=== PATIENT | male | born 1975 | race Hispanic/Latino ===

== ENCOUNTER 2018-02-09 06:32 | Inpatient (IN) | payer OTHER ==
[2018-02-09] MEDS ORDERED: ASPIRIN 81 MG CHEWABLE TABLET ONE (06:56)
[2018-02-09 07:05] LABS: Absolute Lymphocytes (CBC) 2.3 K/uL (0.7-4.9); Absolute Monocytes 0.5 K/uL (0.1-1.3); Absolute Neutrophil 5.2 K/uL (1.8-8.0); Basophils % 0.9 % (0-1.3); Eosinophils % 1.7 % (0-4.4); Hematocrit 44.7 % (39.6-49.0); Lymphocytes % 27.7 % (15.3-44.8); MCH 31.4 pg (27.0-35.0); MCV 92.2 fL (80-100); MPV 8.5 fL (7.6-11.3); Monocytes % 5.9 % (3.3-12.3); RBC Red Blood Cell Count 4.85 M/uL (4.33-5.43)
[2018-02-09 07:14] LABS: Protime INR 0.97
[2018-02-09 07:25] LABS: ALT/SGPT 40 U/L (12-78); AST/SGOT 28 U/L (15-37); Albumin 3.7 g/dL (3.4-5.0); Alkaline Phosphatase 69 U/L (45-117); BUN Blood Urea Nitrogen 17 mg/dL (7-18); Bicarbonate 23 mmol/L (21-32); Bilirubin Direct < 0.1 mg/dL (0-0.2); Bilirubin Total 0.3 mg/dL (0.2-1.0); CKMB Creatine Kinase MB < 1.0 ng/mL (0.3-3.6); Creatine Phosphokinase 78 U/L (39-308); Glucose Level 242 mg/dL (74-106); NT PRO-BNP 8 pg/mL (<125); Potassium 3.8 mmol/L (3.5-5.1); Protein, Total 7.8 g/dL (6.4-8.2); Sodium Level 138 mmol/L (136-145)
[2018-02-09] MEDS ORDERED: ACETAMINOPHEN 500 MG TAB ONE (07:47)
--- NOTE | 2018-02-09 07:51 | RAD REPORT ---
EXAM DESCRIPTION: RAD - Chest Single View - 02/09/2018 7:26 am CLINICAL HISTORY: Chest pain radiating to the left jaw and left shoulder COMPARISON: None. TECHNIQUE: AP portable chest image was obtained 0700 hours . FINDINGS: Lungs are clear. Heart and vasculature are normal. No measurable pleural effusion and no p neumothorax. No gross bony abnormality seen. No acute aortic findings suspected. IMPRESSION: No acute cardiopulmonary process.
--- NOTE | 2018-02-09 09:37 | EKG ---
Test Date: 2018-02-09 Test Time: 09:18:14 Sewing Machine Maintenance Mechanic: FRANCIS MEASUREMENT RESULTS: Intervals: Rate: 67 TX: 150 QRSD: 82 QT: 396 QTc: 418 [place]: P: -3 TX: 150 QRS: 102 T: 11 INTERPRETIVE STATEMENTS: Normal sinus rhythm Rightward axis Borderline ECG Compared to ECG 02/09/2018 06:35:49 Right-axis deviation now present Electronically Signed On 02-09-18 09:36:56 CDT by Shabbir Magdaleno
--- NOTE | 2018-02-09 09:38 | EKG ---
Test Date: 2018-02-09 Test Time: 06:35:49 Wedding Cake Designer: SIERRA MEASUREMENT RESULTS: Intervals: Rate: 62 OK: 144 QRSD: 76 QT: 390 QTc: 395 [place]: P: -1 OK: 144 QRS: 66 T: 21 INTERPRETIVE STATEMENTS: Normal sinus rhythm Normal ECG No previous ECG available for comparison Electronically Signed On 02-09-18 09:37:09 CDT by Shabbir Magdaleno
[2018-02-09 10:05] LABS: CKMB Creatine Kinase MB 7.4 ng/mL (0.3-3.6)
--- NOTE | 2018-02-09 10:26 | EDPHYS ---
Physician Documentation [facility] Name: Edwin Dalal Age: 42 yrs Sex: Male : 1975 Arrival Date: 02/09/2018 Time: 06:43 Bed 19 Private MD: ED Physician Jesus Day HPI: 02/09 07:23 This 42 yrs old Male presents to ER via Wheelchair with complaints of Chest snw Pain. 07:23 The patient or guardian reports chest pain that is located primarily in the anterior snw chest wall, left. Onset: suddenly, awoke pt from sleep. The pain radiates to the left arm, jaw. Associated signs and symptoms: The patient has no apparent associated signs or symptoms. The chest pain is described as aching, a pressure. Duration: The patient or guardian reports a single episode, that is still ongoing. Severity of pain: At its worst the pain was mild moderate. The patient has not experienced similar symptoms in the past. The patient has not recently seen a physician, [facility]. Historical: - Allergies: 06:47 No Known Allergies; lp1 - Home Meds: 06:47 None [Active]; lp1 - PMHx: 06:47 Hypertension; lp1 - PSHx: 06:47 None; lp1 - Immunization history:: Adult Immunizations up to date. - Social history:: Smoking status: Patient uses tobacco products, denies chronic smoking, but will smoke occasionally. - Ebola Screening: : No symptoms or risks identified at this time. ROS: 07:21 Constitutional: Negative for fever, chills, and weight loss, Eyes: Negative for injury, snw pain, redness, and discharge, ENT: Negative for injury, pain, and discharge, Neck: Negative for injury, pain, and swelling, Respiratory: Negative for shortness of breath, cough, wheezing, and pleuritic chest pain, Abdomen/GI: Negative for abdominal pain, nausea, vomiting, diarrhea, and constipation, Back: Negative for injury and pain, : Negative for injury, bleeding, discharge, and swelling, MS/Extremity: Negative for injury and deformity, Skin: Negative for injury, rash, and discoloration, Neuro: Negative for headache, weakness, numbness, tingling, and seizure. 07:21 Cardiovascular: Positive for chest pain. Exam: 07:21 Constitutional: This is a well developed, well nourished patient who is awake, alert, snw and in no acute distress. Head/Face: Normocephalic, atraumatic. Eyes: Pupils equal round and reactive to light, extra-ocular motions intact. Lids and lashes normal. Conjunctiva and sclera are non-icteric and not injected. Cornea within normal limits. Periorbital areas with no swelling, redness, or edema. ENT: Nares patent. No nasal discharge, no septal abnormalities noted. Tympanic membranes are normal and external auditory canals are clear. Oropharynx with no redness, swelling, or masses, exudates, or evidence of obstruction, uvula midline. Mucous membranes moist. Neck: Trachea midline, no thyromegaly or masses palpated, and no cervical lymphadenopathy. Supple, full range of motion without nuchal rigidity, or vertebral point tenderness. No Meningismus. Chest/axilla: Normal chest wall appearance and motion. Nontender with no deformity. No lesions are appreciated. Respiratory: Lungs have equal breath sounds bilaterally, clear to auscultation and percussion. No rales, rhonchi or wheezes noted. No increased work of breathing, no retractions or nasal flaring. Abdomen/GI: Soft, non-tender, with normal bowel sounds. No distension or tympany. No guarding or rebound. No evidence of tenderness throughout. Back: No spinal tenderness. No costovertebral tenderness. Full range of motion. Skin: Warm, dry with normal turgor. Normal color with no rashes, no lesions, and no evidence of cellulitis. MS/ Extremity: Pulses equal, no cyanosis. Neurovascular intact. Full, normal range of motion. Neuro: Awake and alert, GCS 15, oriented to person, place, time, and situation. Cranial nerves II-XII grossly intact. Motor strength 5/5 in all extremities. Sensory grossly intact. Cerebellar exam normal. Normal gait. Psych: Awake, alert, with orientation to person, place and time. Behavior, mood, and affect are within normal limits. 07:21 Cardiovascular: Rate: normal, Rhythm: regular, Pulses: no pulse deficits are appreciated, Heart sounds: normal, JVD: is not appreciated. Vital Signs: 06:46 BP 149 / 93; Pulse 67; Resp 18; Temp 98.2(O); Pulse Ox 98% on R/A; Weight 77.11 kg; lp1 Height 5 ft. 5 in. (165.10 cm); Pain 7/10; 09:25 BP 136 / 68; Pulse 71; Resp 16; Pulse Ox 99% on R/A; Pain 0/10; ch 10:20 BP 149 / 91; Pulse 80; Resp 16; Temp 98; Pulse Ox 97% on R/A; Pain 5/10; ch 12:00 BP 142 / 88; Pulse 77; Resp 15; Temp 98; Pulse Ox 97% on R/A; Pain 2/10; ch 13:50 BP 138 / 76; Pulse 74; Resp 18; Pulse Ox 97% on R/A; Pain 2/10; ch 06:46 Body Mass Index 28.29 (77.11 kg, 165.10 cm) lp1 MDM: 06:46 Patient medically screened. snw 10:26 The patient was given aspirin in the Emergency Department. PER Risk Score: 1 - Recent snw [<24hrs] Severe Angina, 1 - Elevated Cardiac Markers, TOTAL SCORE = 2. Data reviewed: vital signs, nurses notes. Counseling: I had a detailed discussion with the patient and/or guardian regarding: the historical points, exam findings, and any diagnostic results supporting the discharge/admit diagnosis, the presence of at least one elevated blood pressure reading (>120/80) during this emergency department visit, lab results, radiology results, the need for further work-up and treatment in the hospital. Physician consultation: Isabel Fountain MD was called at 10:27, was contacted at 10:27, regarding admission, to the ICU. 12:00 Counseling: I had a detailed discussion with the patient and/or guardian regarding: the snw historical points, exam findings, and any diagnostic results supporting the discharge/admit diagnosis, the presence of at least one elevated blood pressure reading (>120/80) during this emergency department visit. Physician consultation: would like consultation with Dr. Dr. Magdaleno notified at [id number]. 02/09 06:47 Order name: Basic Metabolic Panel; Complete Time: 07:31 snw 02/09 06:47 Order name: CBC with Diff; Complete Time: 07:11 snw 02/09 06:47 Order name: Ckmb; Complete Time: 07: snw 02/09 06:47 Order name: CPK; Complete Time: 07: snw 02/09 06:47 Order name: LFT's; Complete Time: 07:31 snw 02/09 06:47 Order name: Magnesium; Complete Time: 07:31 snw 02/09 06:47 Order name: NT PRO-BNP; Complete Time: 07:31 snw 02/09 06:47 Order name: PT-INR; Complete Time: 07:31 snw 02/09 06:47 Order name: Ptt, Activated; Complete Time: 07:31 snw 02/09 06:47 Order name: Troponin (emerg Dept Use Only); Complete Time: 07:31 snw 02/09 09:02 Order name: CPK; Complete Time: 10:14 snw 02/09 09:02 Order name: Ckmb; Complete Time: 10:14 snw 02/09 09:02 Order name: Troponin (emerg Dept Use Only); Complete Time: 10:19 snw 02/09 11:21 Order name: Urine Dipstick--Ancillary (enter results); Complete Time: 13:07 02/09 06:47 Order name: XRAY Chest (1 view); Complete Time: 08:00 snw 02/09 11:32 Order name: Ptt, Activated ch 02/09 11:32 Order name: UDS; Complete Time: 11:59 snw 02/09 12:09 Order name: CKMB Creatine Kinase MB EDPR 02/09 12:09 Order name: Creatine Phosphokinase EDPR 02/09 12:10 Order name: Echo with Doppler EDPR 02/09 12:10 Order name: T4 Free EDPR 02/09 12:10 Order name: Thyroid Stimulating Hormone EDPR 02/09 12:10 Order name: Hemoglobin A1c; Complete Time: 13:34 EDMS 02/09 12:10 Order name: Troponin I EDPR 02/09 06:47 Order name: EKG; Complete Time: 06:48 snw 02/09 06:47 Order name: Cardiac monitoring; Complete Time: 07:02 snw 02/09 06:47 Order name: EKG - Nurse/Tech; Complete Time: 07:02 snw 02/09 06:47 Order name: IV Saline Lock; Complete Time: 07:02 snw 02/09 06:47 Order name: Labs collected and sent; Complete Time: 07:02 snw 02/09 06:47 Order name: O2 Per Protocol; Complete Time: 07:03 snw 02/09 06:47 Order name: O2 Sat Monitoring; Complete Time: 07:02 snw 02/09 06:47 Order name: Urine Dipstick-Ancillary (obtain specimen); Complete Time: 11:33 snw 02/09 07:32 Order name: Repeat Cardiac Enzymes at: 0900; Complete Time: 09:27 snw 02/09 09:02 Order name: EKG; Complete Time: 09:02 snw 02/09 12:10 Order name: CONS Physician Consult EDMS Administered Medications: 07:02 Drug: Aspirin Chewable Tablet 324 mg Route: PO; lp1 09:27 Follow up: Response: No adverse reaction; Marked relief of symptoms ch 07:40 Drug: Tylenol 1000 mg Route: PO; ch 09:27 Follow up: Response: No adverse reaction; Marked relief of symptoms ch 10:21 CANCELLED (other intervention used): Lovenox 80 mg Sub-Q once snw 10:30 Drug: Heparin ([place] Drip) 12 units/kg/hr - (HEParin 81933 units, D5W 500 ml) ch {Co-Signature: nneka (Darío Almaguer RN).} Route: IV; Rate: 12 calculated rate; Site: right antecubital; 11:31 Follow up: IV Status: Infusion continued upon admission ch 10:40 Drug: PlaVIX 600 mg Route: PO; ch 10:58 Follow up: Response: No adverse reaction ch 11:31 Follow up: Response: No adverse reaction; Marked relief of symptoms ch 10:40 Drug: morphine 2 mg Route: IVP; Site: left forearm; ch 11:30 Follow up: Response: No adverse reaction ch 10:40 Drug: morphine 2 mg Route: IVP; Site: left forearm; ch 11:30 Follow up: Response: No adverse reaction; Marked relief of symptoms ch Disposition: 02/09/18 10:26 Hospitalization ordered by Agustin Nicole for Inpatient Admission. Preliminary diagnosis is Non-ST elevation (NSTEMI) myocardial infarction. - Bed requested for Intensive Care Unit. - Status is Inpatient Admission. bd - Condition is Stable. - Problem is new. - Symptoms are unchanged. UTI on Admission? No Addendum: 02/11/2018 07:04 Co-signature as Attending Physician, Jesus Day MD. r n Signatures: Dispatcher [employer] EDMS Francesca Castellon bd Barbara Ashley, RN RN ch Diana Vieira, DANCE MASTER-C DANCE MASTER-Csnw Jesus Day MD MD rn Karely Cooley, RN RN lp1 Darío Almaguer RN hj Corrections: (The following items were deleted from the chart) 02/09 10:21 10:18 Lovenox 80 mg Sub-Q once ordered. snw snw 10:43 10:26 Hospitalization Ordered by Isabel Fountain MD for Inpatient Admission. Preliminary snw diagnosis is Non-ST elevation (NSTEMI) myocardial infarction. Bed requested for Intensive Care Unit. Status is Inpatient Admission. Condition is Stable. Problem is new. Symptoms are unchanged. UTI on Admission? No. snw 14:13 10:43 02/09/2018 10:26 Hospitalization Ordered by Agustin Nicole DO for Inpatient bd Admission. Preliminary diagnosis is Non-ST elevation (NSTEMI) myocardial infarction. Bed requested for Intensive Care Unit. Status is Inpatient Admission. Condition is Stable. Problem is new. Symptoms are unchanged. UTI on Admission? No. snw
--- NOTE | 2018-02-09 10:26 | ER ---
Nurse's Notes [facility] Name: Edwin Dalal Age: 42 yrs Sex: Male : 1975 Arrival Date: 02/09/2018 Time: 06:43 Bed 19 Private MD: Diagnosis: Non-ST elevation (NSTEMI) myocardial infarction Presentation: 02/09 06:45 Presenting complaint: Patient states: Chest pain that woke him from sleep 1 hour ago; lp1 radiating to left jaw and left arm; Constant pain; Denies any shortness of breath. Transition of care: patient was not received from another setting of care. Onset of symptoms was February 09, 2018 at 05:30. Risk Assessment: Do you want to hurt yourself or someone else? Patient reports no desire to harm self or others. Initial Sepsis Screen: Does the patient meet any 2 criteria? No. Patient's initial sepsis screen is negative. Does the patient have a suspected source of infection? No. Patient's initial sepsis screen is negative. Care prior to arrival: None. 06:45 Method Of Arrival: Wheelchair lp1 06:45 Acuity: ARNOLD 3 lp1 Triage Assessment: 06:48 General: Appears uncomfortable, Behavior is appropriate for age. Pain: Complains of lp1 pain in chest Pain radiates to left arm, left jaw Pain currently is 7 out of 10 on a pain scale. Quality of pain is described as sharp, Pain began 1 hour ago. Cardiovascular: Patient's skin is warm and dry. Rhythm is sinus rhythm. Respiratory: Respiratory effort is even, unlabored. Derm: Skin is pink, warm \T\ dry. Historical: - Allergies: 06:47 No Known Allergies; lp1 - Home Meds: 06:47 None [Active]; lp1 - PMHx: 06:47 Hypertension; lp1 - PSHx: 06:47 None; lp1 - Immunization history:: Adult Immunizations up to date. - Social history:: Smoking status: Patient uses tobacco products, denies chronic smoking, but will smoke occasionally. - Ebola Screening: : No symptoms or risks identified at this time. Screenin:03 Abuse screen: Denies threats or abuse. Denies injuries from another. Nutritional lp1 screening: No deficits noted. Tuberculosis screening: No symptoms or risk factors identified. Fall Risk None identified. Assessment: 07:40 General: Appears in no apparent distress. comfortable, Behavior is calm, cooperative, ch appropriate for age. Pain: Complains of pain in chest Pain currently is 8 out of 10 on a pain scale. Pain began suddenly. Neuro: No deficits noted. Cardiovascular: Reports chest pain, nausea, Heart tones S1 S2 present Capillary refill < 3 seconds in bilateral fingers toes Clubbing of nail beds is absent Patient's skin is warm and dry. Pulses are all present. Edema is absent. Rhythm is sinus rhythm Chest pain is described as mild. Respiratory: Airway is patent Respiratory effort is even, unlabored, Breath sounds are clear bilaterally. GI: Reports nausea. : No signs and/or symptoms were reported regarding the genitourinary system. 09:25 Reassessment: Patient appears in no apparent distress at this time. Patient and/or ch family updated on plan of care and expected duration. Pain level reassessed. pt sleeping in room. when awakened, states he feels much better. 09:53 Reassessment: Patient appears in no apparent distress at this time. No changes from previously documented assessment. Patient and/or family updated on plan of care and expected duration. Pain level reassessed. pt refuses to give urine sample at this time, states he does not need to urinate. 10:52 Reassessment: Patient appears in no apparent distress at this time. Patient and/or ch family updated on plan of care and expected duration. Pain level reassessed. Patient is alert, oriented x 3, equal unlabored respirations, skin warm/dry/pink. pt and family verb understanding of NPO and lab results. awaiting cardiology to see pt. 12:00 Reassessment: Patient appears in no apparent distress at this time. Patient and/or ch family updated on plan of care and expected duration. Pain level reassessed. Patient is alert, oriented x 3, equal unlabored respirations, skin warm/dry/pink. pt states he feels ok, awaiting cardiology. pt remains npo. family at bedside, pt tolerating heparin well. 13:30 Reassessment: heparin drip stopped per orders. Vital Signs: 06:46 BP 149 / 93; Pulse 67; Resp 18; Temp 98.2(O); Pulse Ox 98% on R/A; Weight 77.11 kg; lp1 Height 5 ft. 5 in. (165.10 cm); Pain 7/10; 09:25 BP 136 / 68; Pulse 71; Resp 16; Pulse Ox 99% on R/A; Pain 0/10; ch 10:20 BP 149 / 91; Pulse 80; Resp 16; Temp 98; Pulse Ox 97% on R/A; Pain 5/10; ch 12:00 BP 142 / 88; Pulse 77; Resp 15; Temp 98; Pulse Ox 97% on R/A; Pain 2/10; ch 13:50 BP 138 / 76; Pulse 74; Resp 18; Pulse Ox 97% on R/A; Pain 2/10; ch 06:46 Body Mass Index 28.29 (77.11 kg, 165.10 cm) lp1 ED Course: 06:43 Patient arrived in ED. lp1 06:45 Karely Cooley, RN is Primary Nurse. lp1 06:46 Triage completed. lp1 06:46 Diana Vieira FNP-C [facility]. snw 06:46 Jesus Day MD is Attending Physician. snw 06:46 EKG done, by ED staff. Patient maintains SpO2 saturation greater than 95% on room air. lp1 06:47 Arm band placed on left wrist. lp1 06:48 Patient has correct armband on for positive identification. Placed in gown. Cardiac lp1 monitor on. Pulse ox on. NIBP on. 06:56 Primary Nurse role handed off by Karely Cooley, NAKIA ch 06:56 Barbara Ashley, NAKIA is Primary Nurse. ch 07:03 Inserted saline lock: 20 gauge in right antecubital area, using aseptic technique. lp1 Blood collected. 07:26 XRAY Chest (1 view) In Process Unspecified. EDMS 07:40 No apparent distress. Resting quietly. ch 07:40 No provider procedures requiring assistance completed. ch 07:40 Warm blanket given. ch 09:27 EKG done, by technical services coordinator. reviewed by Diana HIGGINS Repeat EKG. at1 10:25 Isabel Fountain MD is Hospitalizing Provider. snw 10:43 Hospitalizing Provider role handed off by Isabel Fountain MD snw 10:43 Agustin Nicole DO is Hospitalizing Provider. snw 11:00 Inserted saline lock: 20 gauge in left forearm, using aseptic technique. Patient ch admitted, IV remains in place. Administered Medications: 07:02 Drug: Aspirin Chewable Tablet 324 mg Route: PO; lp1 09:27 Follow up: Response: No adverse reaction; Marked relief of symptoms ch 07:40 Drug: Tylenol 1000 mg Route: PO; ch 09:27 Follow up: Response: No adverse reaction; Marked relief of symptoms ch 10:21 CANCELLED (other intervention used): Lovenox 80 mg Sub-Q once snw 10:30 Drug: Heparin ([place] Drip) 12 units/kg/hr - (HEParin 53055 units, D5W 500 ml) ch {Co-Signature: nenka (Darío Almaguer RN).} Route: IV; Rate: 12 calculated rate; Site: right antecubital; 11:31 Follow up: IV Status: Infusion continued upon admission ch 10:40 Drug: PlaVIX 600 mg Route: PO; ch 10:58 Follow up: Response: No adverse reaction ch 11:31 Follow up: Response: No adverse reaction; Marked relief of symptoms ch 10:40 Drug: morphine 2 mg Route: IVP; Site: left forearm; ch 11:30 Follow up: Response: No adverse reaction ch 10:40 Drug: morphine 2 mg Route: IVP; Site: left forearm; ch 11:30 Follow up: Response: No adverse reaction; Marked relief of symptoms ch Outcome: 10:26 Decision to Hospitalize by Provider. snw 14:00 Admitted to OR accompanied by nurse, via stretcher, room Drawing Kiln Supervisor, with chart, Report ch called to given at bedside, pt groin shaved, consent form is not completed but is on chart 14:00 Condition: stable 14:00 Instructed on need for heart cath per dr. Magdaleno 14:13 Patient left the ED. bd Signatures: Dispatcher [employer] EDMS Francesca Castellon Christina, RN RN ch Diana Vieira, TIN WHIZ MACHINE OPERATOR-C TIN WHIZ MACHINE OPERATOR-Csnw Karely Cooley RN RN lp1 Becca Tejada, delinquent tax collector EKG Tat1 Darío early
[2018-02-09] MEDS ORDERED: HEPARIN/D5W 25,000 UNIT/500 ML BAG IV ONE (10:30)
[2018-02-09] MEDS ORDERED: HEPARIN 5000 UNIT/ML 1 ML VIAL ONE ×2 (10:30→14:09)
[2018-02-09] MEDS ORDERED: CLOPIDOGREL 75 MG TABLET ONE (10:31)
[2018-02-09] MEDS ORDERED: MORPHINE 4 MG/ML SYR ONE (10:32)
[2018-02-09 11:58] LABS: Barbiturates NEGATIVE (NEGATIVE); Benzodiazepines NEGATIVE (NEGATIVE); Cocaine NEGATIVE (NEGATIVE); METHAMPHETAM NEGATIVE (NEGATIVE); Methadone NEGATIVE (NEGATIVE); Opiates NEGATIVE (NEGATIVE); Phencyclidine NEGATIVE (NEGATIVE); THC Cannibis NEGATIVE (NEGATIVE)
[2018-02-09] MEDS ORDERED: NITROGLYCERIN 0.4 MG/TAB SL PRN (12:02)
[2018-02-09] MEDS ORDERED: ACETAMINOPHEN 500 MG TAB PO PRN (12:02)
[2018-02-09] MEDS ORDERED: ACETAMINOPHEN 650MG/RECT SUPP PR PRN (12:02)
[2018-02-09] MEDS ORDERED: SODIUM CHLORIDE 0.9% 10ML INJ IV PRN (12:02)
[2018-02-09] MEDS ORDERED: ONDANSETRON 4 MG/2 ML VIAL IV PRN (12:02)
[2018-02-09 12:54] LABS: Urine Blood TRACE (NEG); Urine Glucose 2+ (NEG); Urine Protein TRACE (NEG); Urine Specific Gravity 1.025 (1.005-1.030); Urine pH 5.5 (5.0-7.0)
[2018-02-09] MEDS ORDERED: HEPARIN/D5W 25,000 UNIT/500 ML BAG IV SCH (13:00)
[2018-02-09] MEDS ORDERED: HEPA 1000U/500MLS 2,000 UNIT/1,000 ML BAG IV ONE (13:46)
[2018-02-09] MEDS ORDERED: MIDAZOLAM HCL 2 MG/2 ML INJ ONE (14:02)
[2018-02-09] MEDS ORDERED: ATROPINE SULF 1 MG/10 ML SYR IV ONE (14:02)
[2018-02-09] MEDS ORDERED: FENTANYL CITR 100 MCG/2 ML ONE (14:02)
[2018-02-09] MEDS ORDERED: NA CHLORIDE 0.9% 500 ML ONE (14:08)
[2018-02-09] MEDS ORDERED: NICARDIPINE HCL 25 MG/10 ML IV ONE (14:09)
[2018-02-09] MEDS ORDERED: LIDOCAINE 1% MPF 2 ML AMPULE ONE (14:09)
[2018-02-09] MEDS ORDERED: NA CHLORIDE 0.9% 0 ML ONE (14:09)
[2018-02-09 14:28] LABS: Thyroid Stimulating Hormone 1.01 uIU/mL (0.36-3.74)
--- NOTE | 2018-02-09 14:31 | P.HP ---
Certification for Inpatient Patient admitted to: Inpatient With expected LOS: >2 Midnights Patient will require the following post-hospital care: None Practitioner: I am a practitioner with admitting privileges, knowledge of patient current condition, hospital course, and medical plan of care. Services: Services provided to patient in accordance with Admission requirements found in Title 42 Section 412.3 of the Code of Federal Regulations Patient History Date of Service: 02/09/18 Primary Care Provider: DEVAUGHN De Souza Reason for admission: Chest pain History of Present Illness: 42-year-old male presented to the emergency room with chest pain. Patient reports chest pain to the substernal region. It started to the jaw and radiated down to the chest and to the left arm. It was associated with some shortness of breath, and sweating. This came on suddenly. Patient with history of hypertension and tobacco abuse. Patient came to the ER for further evaluation. In the ER patient evaluated. EKG shows no significant ST changes. Initial cardiac enzymes or within normal range but 2nd set increased to a troponin of 3.4. Glucose 242. A1c 11.1. Patient started on DC protocol. Patient admitted to ICU. When I saw the patient ER, he was without any significant chest pain Patient appeared stable. Patient reports a history of hypertension and tobacco abuse. Patient has no prior history of diabetes. Patient drinks alcohol on occasion. Allergies No Known Allergies Allergy (Verified 09/12/12 18:27) Home medications list reviewed: Yes - Past Medical/Surgical History Diabetic: No -: Hypertension -: Tobacco abuse -: Appendectomy Psychosocial/ Personal History: The patient is . He has 2 children. 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 - Family History Mother -: Heart disease, Hypertension, Diabetes, Cancer (Oral cancer) - Social History Smoking Status: Heavy Tobacco smoker (>10 cigarettes/day) Counseled patient to stop smoking for: less than 10 minutes Smoking therapy provided: Yes Patient receptive to therapy: Yes Alcohol use: Yes CD- Drugs: No Caffeine use: Yes Place of Residence: Home Review of Systems General: Weakness, As per HPI Eyes: Unremarkable ENT: Unremarkable Respiratory: Shortness of Breath, As per HPI Cardiovascular: Chest Pain, As per HPI Gastrointestinal: Unremarkable Genitourinary: Unremarkable Musculoskeletal: Unremarkable Integumentary: Unremarkable Neurological: Unremarkable Lymphatics: Unremarkable Physical Examination - Physical Exam General: Alert, In no apparent distress, Oriented x3, Cooperative HEENT: Atraumatic, Normocephalic, PERRLA, Mucous membr. moist/pink Neck: Supple, No Thyromegaly Respiratory: Clear to auscultation bilaterally, Normal air movement Cardiovascular: Normal pulses, Regular rate/rhythm Gastrointestinal: Normal bowel sounds, Soft and benign, Non-distended, No tenderness, No masses, No rebound, No guarding Musculoskeletal: No contractures, No erythema, No tenderness, No warmth Integumentary: No tenderness/swelling, No erythema, No warmth, No cyanosis Neurological: Normal speech, Normal strength at 5/5 x4 extr, Normal tone, Normal affect Lymphatics: No axilla or inguinal lymphadenopathy - Studies Laboratory Data (last 24 hrs) 02/09/18 06:55: PT 11.4, INR 0.97, APTT 35.7 02/09/18 06:55: WBC 8.2, Hgb 15.2, Hct 44.7, Plt Count 235 02/09/18 06:55: Sodium 138, Potassium 3.8, BUN 17, Creatinine 0.60, Glucose 242 H, Magnesium 2.0, Total Bilirubin 0.3, AST 28, ALT 40, Alkaline Phosphatase 69 Assessment and Plan - Problems (Diagnosis) (1) Non-Q wave non-ST elevation myocardial infarction Current Visit: Yes Status: Acute Plan: Patient found to have non ST wave DC. Will continue with DC protocol. Patient started on heparin drip. Will continue with aspirin, Plavix, statin medication and metoprolol. Cardiology has been informed. Anticipate cardiac evaluation and intervention either today or tomorrow. Await findings. (2) Hypertension Current Visit: Yes Status: Chronic Plan: Patient started on metoprolol. Will maintain blood pressure control. Qualifiers: Hypertension type: essential hypertension Qualified Code(s): I10 - Essential (primary) hypertension (3) Diabetes mellitus Current Visit: Yes Status: Acute Plan: New diagnosis of diabetes. Hemoglobin A1c 11.1. Will continue sliding scale. Will monitor closely. Patient will likely need insulin at discharge. Qualifiers: Diabetes mellitus type: type 2 Diabetes mellitus terminal manager insulin use: without fdc use Diabetes mellitus complication status: with circulatory complication Diabetes mellitus complication detail: with other circulatory complications Qualified Code(s): E11.59 - Type 2 diabetes mellitus with other circulatory complications (4) Tobacco abuse Current Visit: Yes Status: Chronic Plan: Continue with tobacco cessation education at discharge. Discharge Plan: Home Plan to discharge in: Greater than 2 days - Advance Directives Does patient have a Living Will: No Does patient have a Durable POA for Healthcare: No - Code Status/Comfort Care Code Status Assessed: Yes Time Spent Managing Pts Care (In Minutes): 55
[2018-02-09] MEDS: INSULIN -REGULAR HUMAN 50 UNIT/0.5 ML ML SQ SCH ×2 (16:30→21:57)
[2018-02-09 17:12] LABS: CKMB Creatine Kinase MB 10.2 ng/mL (0.3-3.6)
--- NOTE | 2018-02-09 18:59 | CON ---
CARDIOLOGY CONSULT Chief Complaint: Chest pain. History Of Present Illness: Mr. Dalal is free of any symptoms until this morning at 5 a.m. He awake lori with chest pain, nausea, vomiting, sweating, tightness, radiating to the jaws and arms, came to t he ER where EKGs have not shown ST elevation. In fact, they looked completely normal. Cardiac enzym es, however, have become elevated. His first troponin was 0.02. The second one was 3. The patient has no previous history of heart disease. He takes a blood pressure medicine. He thinks he probably has diabetes. He smokes. He does not follow any special diet or exercise plan. Never had heart ca theterization, OK, stroke, or any interventions in the past. He has no allergies. Physical Examination: General: He appears to be his stated age of 42, alert, oriented, pleasant, not in distress. Lungs: Clear. Carotids: No bruit. Heart: Within normal limits. Extremities: Palpable radial pulse. Imaging: The chest x-ray is within normal limits. Laboratory Data: Laboratory exam reveals a troponin of 3.4. Most recently, hemoglobin A1c is 11.1. His creatinine is 0.6, blood sugar 242. Impression: Mr. Dalal is having an acute coronary syndrome without ST elevation. He initially had p ain first an hour, it mostly went away and now it is coming back. So, I have recommended to him that we do a cardiac cath. He seems to understand the procedure, potential benefits, indications, risks, and agrees to proceed. We will try the radial approach if we can demonstrate a normal Barbeau test. Otherwise, we use a femoral approach. Thank you very much for your kind referral of Mr. Dalal. I will follow him with you. ANGELIKA/SIMÓN Voice ID: [id number] Report ID: [id number]
[2018-02-09 20:11] VITALS: BMI 28.3
[2018-02-09] MEDS ORDERED: ATORVASTATIN 80 MG TAB PO SCH (21:00)
[2018-02-09] MEDS: METOPROLOL TAR 50 MG TAB PO SCH (21:56)
--- NOTE | 2018-02-10 02:00 | OP ---
Surgeon: Shabbir Magdaleno MD Procedures: Left heart catheterization, coronary left ventricular angiography. Nitrate Operator: Daniel Torres. Findings: The patient has a left dominant coronary system. He has normal coronary arteries. There is mild diffuse plaque. There is no coronary stenosis. Left ventricular ejection fraction is normal at 65%. No segmental wall motion abnormality. Left ventricular end-diastolic pressure was elevated at 18. Procedure In Detail: The patient was thought to be having a non-ST elevation KS or acute coronary sy ndrome with elevated troponins, normal EKG. He was brought to the cardiac entry level lab technician in a fasting stat e, sedated with Versed and fentanyl. Right radial approach was used, prepared and draped in the usua l sterile fashion. Lidocaine 1% was used to anesthetize the skin over the right radial artery. It w as entered using a 21-gauge needle and a modified Seldinger technique was used to place a 6-Emirati Te rumo radial sheath. We flushed the sheath and gave the radial cocktail consisting of nicardipine, he kenneth, and nitroglycerin. We placed a TIG catheter into the ascending aorta using a [employer]umWakeMate Glidewire with a short radius J-tip and fluoroscopy. We were able to angiogram left ventricle, right coronary , left coronary all with the same TIG catheter. When the decision was made not to do an acute interv ention, the catheter was removed over a J-wire. The sheath was flushed. TR band applied after the s vinicio was removed. No complications. Estimated blood loss 5 cc. LEVON Voice ID: [id number] Report ID: [id number]
[2018-02-10 02:16] LABS: CKMB Creatine Kinase MB 5.2 ng/mL (0.3-3.6)
[2018-02-10 04:50] LABS: Absolute Lymphocytes (CBC) 2.6 K/uL (0.7-4.9); Absolute Monocytes 0.7 K/uL (0.1-1.3); Absolute Neutrophil 5.3 K/uL (1.8-8.0); Basophils % 0.5 % (0-1.3); Eosinophils % 1.9 % (0-4.4); Hematocrit 43.5 % (39.6-49.0); Lymphocytes % 29.5 % (15.3-44.8); MCH 31.5 pg (27.0-35.0); MCV 91.9 fL (80-100); MPV 8.5 fL (7.6-11.3); Monocytes % 7.9 % (3.3-12.3); RBC Red Blood Cell Count 4.74 M/uL (4.33-5.43)
[2018-02-10 05:03] LABS: BUN Blood Urea Nitrogen 16 mg/dL (7-18); Bicarbonate 29 mmol/L (21-32); Glucose Level 214 mg/dL (74-106); HDL Cholesterol 33 mg/dL (40-60); LDL Cholesterol, Calculated ND (<130); Magnesium 2.2 mg/dL (1.8-2.4); Potassium 3.8 mmol/L (3.5-5.1); Sodium Level 137 mmol/L (136-145)
[2018-02-10 05:14] LABS: LDL, Direct 157 mg/dL (100-129)
[2018-02-10] MEDS ORDERED: ASPIRIN EC 81 MG TAB PO SCH (09:00)
[2018-02-10] MEDS ORDERED: ASPIRIN 325 MG TAB PO SCH (09:00)
[2018-02-10] MEDS ORDERED: PANTOPRAZOLE 40 MG INJ IVP SCH (09:00)
[2018-02-10] MEDS ORDERED: PRASUGREL (EFFIENT) 10 MG TAB PO SCH (09:00)
[2018-02-10] MEDS: METOPROLOL TAR 50 MG TAB PO SCH (09:32)
[2018-02-10] MEDS: INSULIN -REGULAR HUMAN 50 UNIT/0.5 ML ML SQ SCH ×3 (09:33→16:35)
[2018-02-10 09:53] VITALS: O2SAT 97
--- NOTE | 2018-02-10 12:48 | ECHO ---
HEIGHT: 5 ft 5 in WEIGHT: 170 lb 0 oz DATE OF STUDY: 02/10/[address]: Agustin Nicole DO 2-DIMENSIONAL: YES M.MODE: YES DOPPLER: YES COLOR FLOW: YES TDS: NO PORTABLE: NO DEFINITY: NO BUBBLE STUDY: NO DIAGNOSIS: NSTEMI CARDIAC HISTORY: CATHERIZATION: NO SURGERY: NO PROSTHETIC VALVE: NO PACEMAKER: NO MEASUREMENTS (cm) DIASTOLIC (NORMALS) SYSTOLIC (NORMALS) IVSd 0.9 (0.6-1.2) LA Diam 3.3 (1.9-4.0) LVEF 64% LVIDd 4.0 (3.5-5.7) LVIDs 2.6 (2.0-3.5) %FS 35% LVPWd 1.0 (0.6-1.2) Ao Diam 3.1 (2.0-3.7) 2 DIMENSIONAL ASSESSMENT: RIGHT ATRIUM: NORMAL LEFT ATRIUM: NORMAL RIGHT VENTRICLE: NORMAL LEFT VENTRICLE: NORMAL TRICUSPID VALVE: NORMAL MITRAL VALVE: NORMAL PULMONIC VALVE: NORMAL AORTIC VALVE: NORMAL PERICARDIAL EFFUSION: NONE AORTIC ROOT: NORMAL LEFT VENTRICULAR WALL MOTION: NORMAL DOPPLER/COLOR FLOW: NORMAL. COMMENTS: NORMAL 2D ECHO WITH DOPPLER. NO WALL MOTION ABNORMALITY. NO EFFUSION. TECHNOLOGIST: DEXTER HEADLEY
[2018-02-10 18:14] VITALS: BP 120/58; TEMP 97.3
--- NOTE | 2018-02-10 18:34 | P.DS ---
Admission Date: 02/09/18 Discharge Date: 02/10/18 Primary Care Provider: DEVAUGHN De Souza Disposition: ROUTINE DISCHARGE Discharge Condition: GOOD Reason for Admission: Chest pain Brief History of Present Illness: By Dr Nicole 42-year-old male presented to the emergency room with chest pain. Patient reports chest pain to the substernal region. It started to the jaw and radiated down to the chest and to the left arm. It was associated with some shortness of breath, and sweating. This came on suddenly. Patient with history of hypertension and tobacco abuse. Patient came to the ER for further evaluation. In the ER patient evaluated. EKG shows no significant ST changes. Initial cardiac enzymes or within normal range but 2nd set increased to a troponin of 3.4. Glucose 242. A1c 11.1. Patient started on ME protocol. Patient admitted to ICU. Hospital Course: Mr Dalal was admitted to the hospital due to typical chest pain with elevated troponin I consistent with a non ST elevation ME. He was evaluated by operations and maintenance specialist for a comment to do a left heart catheterization. The procedure was done yesterday revealed normal coronary arteries. There is a suspicion that his symptoms were secondary to vasospasms. Echocardiogram showed normal left ventricular function with an EF of about 64%. His blood sugar has been in the high side, hemoglobin A1c was 11.1%, the patient was diagnosed with diabetes mellitus about a year ago but he did not take the prescribed medication. Currently this patient this asymptomatic, hemodynamically stable. He will be discharged home, will follow up with operations and maintenance specialist in a couple of weeks. Will prescribe metformin, and applies to the patient to have close follow-up in Family Medicine physician and in order to have well control of his that mellitus. The patient will be discharged home in stable condition. Vital Signs/Physical Exam: Temp Pulse Resp BP Pulse Ox 97.3 F 62 18 120/58 L 97 02/10/18 16:00 02/10/18 16:00 02/10/18 16:00 02/10/18 16:02/10/18 16:00 General: Alert, In no apparent distress Respiratory: Clear to auscultation bilaterally, Normal air movement Cardiovascular: Regular rate/rhythm, Normal S1 S2 Gastrointestinal: Normal bowel sounds, No tenderness Musculoskeletal: No tenderness Integumentary: No rashes Neurological: Normal speech, Normal tone, Normal affect Lymphatics: No axilla or inguinal lymphadenopathy Laboratory Data at Discharge: WBC 8.8 K/uL (4.3-10.9) 02/10/18 04:03 Hgb 14.9 g/dL (13.6-17.9) 02/10/18 04:03 Hct 43.5 % (39.6-49.0) 02/10/18 04:03 Plt Count 214 K/uL (152-406) 02/10/18 04:03 PT 11.4 SECONDS (9.5-12.5) 02/09/18 06:55 INR 0.97 02/09/18 06:55 APTT 49.2 SECONDS (24.3-36.9) H 02/09/18 16:23 Sodium 137 mmol/L (136-145) 02/10/18 04:03 Potassium 3.8 mmol/L (3.5-5.1) 02/10/18 04:03 BUN 16 mg/dL (7-18) 02/10/18 04:03 Creatinine 0.80 mg/dL (0.55-1.3) 02/10/18 04:03 Glucose 214 mg/dL (74-106) H 02/10/18 04:03 Magnesium 2.2 mg/dL (1.8-2.4) 02/10/18 04:03 Total Bilirubin 0.3 mg/dL (0.2-1.0) 02/09/18 06:55 AST 28 U/L (15-37) 02/09/18 06:55 ALT 40 U/L (12-78) 02/09/18 06:55 Alkaline Phosphatase 69 U/L (45-117) 02/09/18 06:55 Troponin I 3.56 ng/mL (0.0-0.045) H* 02/10/18 01:17 Triglycerides 435 mg/dL (<150) H 02/10/18 04:03 Cholesterol 242 mg/dL (<200) H 02/10/18 04:03 LDL Cholesterol Direct 157 mg/dL (100-129) H 02/10/18 04:03 HDL Cholesterol 33 mg/dL (40-60) L 02/10/18 04:03 Cholesterol/HDL Ratio 7.33 02/10/18 04:03 Home Medications: Aspirin [Aspirin EC 81 MG] 81 mg PO DAILY #30 tablet. 02/10/18 Atorvastatin Calcium [Lipitor] 80 mg PO BEDTIME #30 tab 02/10/18 Metformin HCl 500 mg PO BID #60 tablet 02/10/18 Metoprolol Tartrate [Lopressor*] 50 mg PO BID #60 tab 02/10/18 Nitroglycerin [Nitrostat*] 0.4 mg SL UD PRN #30 tab 02/10/18 Prasugrel Hydrochloride [Effient*] 10 mg PO DAILY #30 tab 02/10/18 New Medications: Aspirin [Aspirin EC 81 MG] 81 mg PO DAILY #30 tablet. Atorvastatin Calcium [Lipitor] 80 mg PO BEDTIME #30 tab Metformin HCl 500 mg PO BID #60 tablet Metoprolol Tartrate [Lopressor*] 50 mg PO BID #60 tab Nitroglycerin [Nitrostat*] 0.4 mg SL UD PRN #30 tab PRN Reason: Chest Pain Prasugrel Hydrochloride [Effient*] 10 mg PO DAILY #30 tab Diet: AHA Activity: Ad river Time spent managing pt's care (in minutes): 40
--- NOTE | 2018-02-11 06:07 | PN ---
History Of Present Illness: Admitted to Dr. Nicole' service on 02/09/2018 for [id number] HI. Dr. Magdaleno performed the left heart catheterization on him on 02/09/2018. He was found to have mario l coronaries. The working diagnosis is coronary spasm versus possible plaque rupture with a clot radha t has resolved. Overnight, the patient has no complication from his catheterization insertion site. No telemetry changes. He is asymptomatic. He can go home today whenever it is okay with Dr. Nicole . He will see him in the office in 2 weeks. He definitely needs to resume his metformin in 48 hours after the catheterization. He needs to be on aspirin and statin and a calcium channel rebecca. LEA/MODL Voice ID: [id number] Report ID: [id number]
== END 2018-02-10 20:15 | disposition home or self-care (01) | DRG 282 ==
LOC: ER 06:32 → ERHOLD 12:02 → 4TH 17:50
PROVIDERS: ADMIT Family Medicine; ATTEND Internal Medicine
PROC: 4A023N7 Measurement of Cardiac Sampling and Pressure, Left Heart, Percutaneous Approach (ICD-10-PCS; principal; 2018-02-09)
PROC: B2111ZZ Fluoroscopy of Multiple Coronary Arteries using Low Osmolar Contrast (ICD-10-PCS; 2018-02-09)
PROC: B2151ZZ Fluoroscopy of Left Heart using Low Osmolar Contrast (ICD-10-PCS; 2018-02-09)
DX: I21.4 Non-ST elevation (NSTEMI) myocardial infarction (principal); I10 Essential (primary) hypertension; E11.9 Type 2 diabetes mellitus without complications; F17.210 Nicotine dependence, cigarettes, uncomplicated; I20.1 Angina pectoris with documented spasm
CPT/HCPCS: 36415; 71045; 80048; 80061; 80076; 80307; 81003; 82550; 82553; 82962; 83036; 83735; 83880; 84439; 84443; 84484; 85025; 85610; 85730; 93005; 93306; 93458; 96365; 96375; 99285; C1893; C9113; J0583; J1644; J2001; J2250; J3010